=== PATIENT | female | born 1995 | race Caucasian/White ===

== ENCOUNTER 2021-12-28 09:19 | Outpatient (CLI) | payer MEDICAID, SELFPAY ==
[2021-12-28 16:00] LABS: Free T4 Free Thyroxine* 1.12 ng/dL (0.70-1.85)
== END 2021-12-28 09:20 | disposition home or self-care (01) ==
PROVIDERS: PCP Physician Assistant Medical; Visit Provider Physician Assistant Medical
DX: E03.9 Hypothyroidism, unspecified (principal)
CPT/HCPCS: 84439; 84443

== ENCOUNTER 2022-03-23 13:47 | Outpatient (CLI) | payer MEDICAID, SELFPAY ==
--- NOTE | 2022-03-23 14:00 | CRLHL7_ITS ---
For Patients: As a result of the Cures Act, medical imaging exams and procedure reports are released immediately into your electronic medical record. You may view this report before your referring provider. If you have questions, please contact your health care provider. Indication: Sinusitis Technique: Performed without IV contrast Comparison: None available Findings: Frontal sinuses: Mucosal thickening within both frontal sinuses inferiorly. Ethmoid sinuses: Moderate opacification of both ethmoid sinuses. Maxillary sinuses: Near complete opacification of the right maxillary sinus with obstruction of the sinus drainage pathway. Moderate mucosal thickening left maxillary sinus with preservation of the maxillary sinus drainage pathway. Sphenoid sinuses: Moderate opacification of the right sphenoid sinus and mild opacification of the left sphenoid sinus. Partial obstruction of the sphenoethmoidal recesses bilaterally. Nasal Cavity: Slight leftward curvature of the nasal septum. No polyps. Mild nasal turbinate mucosal hypertrophy bilaterally. No TMJ abnormalities identified. The visualized portions of the orbits, intracranial contents and upper soft tissue neck are grossly negative. Impression: 1. Bilateral sinus disease particularly involving the right maxillary and right sphenoid sinuses. 2. Partial obstruction of the sinus drainage pathways bilaterally along with complete obstruction of the right maxillary sinus drainage pathway. Please note that all CT scans at this facility use dose modulation, iterative reconstruction, and/or weight-based dosing when appropriate to reduce radiation dose to as low as reasonably achievable. Dictated by Trung Bonner MD @ 03/23/2022 2:39:44 PM (Electronically Signed)
== END 2022-03-23 13:48 | disposition home or self-care (01) ==
LOC: CT 13:49
PROVIDERS: PCP Physician Assistant Medical; Visit Provider Otolaryngology
DX: J32.9 Chronic sinusitis, unspecified (principal); J32.0 Chronic maxillary sinusitis
CPT/HCPCS: 70486

== ENCOUNTER 2022-05-13 10:08 | Outpatient (CLI) | payer MEDICAID, SELFPAY ==
[2022-05-13 20:08] LABS: Free T4 Free Thyroxine* 1.27 ng/dL (0.70-1.85)
== END 2022-05-13 10:09 | disposition home or self-care (01) ==
PROVIDERS: PCP Physician Assistant Medical; Visit Provider Physician Assistant Medical
DX: E03.9 Hypothyroidism, unspecified (principal)
CPT/HCPCS: 84439; 84443

== ENCOUNTER 2022-07-29 13:33 | Outpatient (CLI) | payer MEDICAID, SELFPAY | END 2022-07-29 13:34 | disposition home or self-care (01) | LOC: FRMREF 13:34 | PROVIDERS: PCP Physician Assistant Medical; Visit Provider Physician Assistant Medical | DX: E03.9 Hypothyroidism, unspecified (principal) | CPT/HCPCS: 84439; 84443 ==

== ENCOUNTER 2022-12-02 13:17 | Outpatient (CLI) | payer MEDICAID, SELFPAY | END 2022-12-02 13:18 | disposition home or self-care (01) | LOC: NFLDREF 12-03 10:51 | PROVIDERS: PCP Physician Assistant Medical; Referring Provider Physician Assistant Medical; Visit Provider Physician Assistant Medical | DX: E03.9 Hypothyroidism, unspecified (principal) | CPT/HCPCS: 84439; 84443 ==

== ENCOUNTER 2023-05-27 22:07 | Outpatient (CLI) | payer MEDICAID, SELFPAY | END 2023-05-27 22:08 | disposition home or self-care (01) | LOC: AMB 05-30 09:05 | PROVIDERS: PCP Physician Assistant Medical; Visit Provider Internal Medicine | DX: R55 Syncope and collapse (principal) | CPT/HCPCS: A0998 ==

== ENCOUNTER 2023-05-28 14:08 | Outpatient (CLI) | payer MEDICAID, SELFPAY | END 2023-05-28 14:09 | disposition home or self-care (01) | LOC: NFLDUCREF 14:10 | PROVIDERS: PCP Physician Assistant Medical; Visit Provider Nurse Practitioner Family | DX: E03.9 Hypothyroidism, unspecified (principal) | CPT/HCPCS: 84439; 84443 ==

== ENCOUNTER 2024-07-24 13:40 | Outpatient (CLI) | payer MEDICAID, SELFPAY ==
--- NOTE | 2024-07-24 13:45 | CRLHL7_ITS ---
For Patients: As a result of the Cures Act, medical imaging exams and procedure reports are released immediately into your electronic medical record. You may view this report before your referring provider. If you have questions, please contact your health care provider. LMP: 05/17/2024. SARABJIT by LMP: 02/21/25. GA: 9w, 5d. INDICATION: Dating and viability. CRL: 3.2 cm, 10w 1d. SARABJIT 02/18/2025. FHR: 178 bpm. GESTATIONAL SAC: 4.5 cm, appears within normal limits. YOLK SAC: 4.7 mm, appears within normal limits. RIGHT OVARY: 5.2 x 2.5 x 2.4, CL. LEFT OVARY: 3.7 x 2.1 x 2.1. IMPRESSION: Sonographic gestational age 10 weeks 1 day and sonographic due date 02/18/2025. Trung Bonner M.D. Diagnostic Radiologist [email or web address] DONN/debo / bM/Dictated by: Trung Bonner MD @ 07/24/2024 2:37:00 PM (Electronically Signed)
== END 2024-07-24 13:41 | disposition home or self-care (01) ==
LOC: US 13:40
PROVIDERS: PCP Physician Assistant Medical; Visit Provider Advanced Practice Midwife
DX: Z34.91 Encounter for supervision of normal pregnancy, unspecified, first trimester (principal); Z3A.10 10 weeks gestation of pregnancy
CPT/HCPCS: 76817; 83021; 86703; 86706; 86803; 86850; 86900; 86901; 87086; 87340; 87491; 87591; 87624; 88142

== ENCOUNTER 2024-07-24 15:11 | Outpatient (CLI) | payer MEDICAID, SELFPAY ==
[2024-07-24 20:27] LABS: Chlamydia DNA Amplified* NOT DETECTED (No Detected); GC DNA Amplified* NOT DETECTED (No Detected)
[2024-07-27 02:53] LABS: HPV Source Cervical; HPV, High Risk by TMA Not Detected
== END 2024-07-24 15:12 | disposition home or self-care (01) ==
PROVIDERS: PCP Physician Assistant Medical; Visit Provider Advanced Practice Midwife
DX: Z34.91 Encounter for supervision of normal pregnancy, unspecified, first trimester (principal); Z12.4 Encounter for screening for malignant neoplasm of cervix; Z3A.09 9 weeks gestation of pregnancy
CPT/HCPCS: 83020; 83021; 84439; 84443; 85660; 86376; 86592; 86703; 86704; 86706; 86762; 86787; 86803; 86850; 86900; 86901; 87086; 87340; 87491; 87591; 87624; 87625; 88141; 88142

== ENCOUNTER 2024-08-30 13:57 | Outpatient (CLI) | payer MEDICAID, SELFPAY | END 2024-08-30 13:58 | disposition home or self-care (01) | LOC: NPINS 14:00 | PROVIDERS: PCP Physician Assistant Medical; Visit Provider Internal Medicine Endocrinology, Diabetes & Metabolism | DX: E06.3 Autoimmune thyroiditis (principal) | CPT/HCPCS: 84443 ==

== ENCOUNTER 2024-09-19 14:22 | Outpatient (CLI) | payer MEDICAID, SELFPAY | END 2024-09-19 14:23 | disposition home or self-care (01) | LOC: FRMREF 14:22 | PROVIDERS: PCP Physician Assistant Medical; Visit Provider Advanced Practice Midwife | DX: E03.9 Hypothyroidism, unspecified (principal) | CPT/HCPCS: 84443 ==

== ENCOUNTER 2024-10-12 12:09 | Outpatient (CLI) | payer MEDICAID, SELFPAY ==
--- NOTE | 2024-10-12 12:15 | CRLHL7_ITS ---
For Patients: As a result of the Century Cures Act, medical imaging exams and procedure reports are released immediately into your electronic medical record. You may view this report before your referring provider. If you have questions, please contact your health care provider. OBSTETRICAL ULTRASOUND ??? ANATOMY SURVEY INDICATION: anatomy survey. LMP: 05/17/2024 SARABJIT by LMP: 02/21/2025 GESTATIONAL AGE: 21 weeks 1 day TECHNIQUE: Real-time fitzgerald-scale imaging of the fetus was performed transabdominal. FINDINGS: position: Multiple positions Cervix: Visualized Technique: Transabdominal Length of closed cervix: 4.7 cm Placenta position: Anterior Technique: Transabdominal Placenta tip to internal os: 7.0 cm Umbilical cord: 3-vessel cord Placental insertion: Eccentric Amniotic fluid: 5.5 cm SDP (greater than/equal to 2 to less than 8 cm) ANATOMY SURVEY: Observed Structures Cerebellum: 2.3 cm, 22 weeks 4 days Cisterna magna: 7.0 mm Nuchal fold: 4.4 mm Lateral ventricle: 7.1 mm CSP: Yes Midline falx: Yes Choroid plexus: Yes Spine: Yes Stomach: Yes Abdominal cord insert: Yes Urinary bladder: Yes Kidneys: Yes Diaphragm: Yes Nose/lips: Yes Orbital view: Yes Profile: Yes Upper extremities: Yes Lower extremities: Yes Hands: Yes Feet: Yes 4-chamber heart: Yes LVOT: Yes RVOT: Yes 3VV: Yes 3VTV: Yes BIOMETRY BPD: 5.4 cm, 22 weeks 3 days, 91.8% HC: 20.3 cm, 22 weeks 3 days, 89.1% AC: 17.8 cm, 22 weeks 5 days, 86.7% FL: 3.6 cm, 21 weeks 3 days, 52.9% heart rate: 142 bpm age by this ultrasound: 22 weeks 2 days SARABJIT by this ultrasound: 02/13/2025 Estimated weight: 482.49 grams (1 pound 1 ounce) Percentile by SARABJIT: 92.0% IMPRESSION: 1) Sonographic gestational age 22 weeks days, and sonographic due date is 02/13/2025. Sonographic age is eight days ahead of clinical dates. 2) Estimated weight is at the 92nd percentile. Abdominal circumference 87th percentile. 3) The renal pelvis measures 3.2 mm on the right and 1.6 mm on the left. This is considered normal. The remainder of the anatomic survey is unremarkable. TRUNG LEE M.D. Diagnostic Radiologist [email or web address] DW/Dictated by: Trung Lee MD @ 10/13/2024 5:31:00 PM (Electronically Signed)
== END 2024-10-12 12:10 | disposition home or self-care (01) ==
PROVIDERS: PCP Physician Assistant Medical; Visit Provider Advanced Practice Midwife
DX: Z34.92 Encounter for supervision of normal pregnancy, unspecified, second trimester (principal); O36.63X0 Maternal care for excessive fetal growth, third trimester, not applicable or unspecified; Z3A.21 21 weeks gestation of pregnancy
CPT/HCPCS: 76805; 84439; 84443

== ENCOUNTER 2024-11-28 14:23 | Outpatient (CLI) | payer MEDICAID, SELFPAY | END 2024-11-28 14:24 | disposition home or self-care (01) | LOC: FRMREF 14:24 | PROVIDERS: PCP Physician Assistant Medical; Visit Provider Advanced Practice Midwife | DX: Z36.89 Encounter for other specified antenatal screening (principal); O99.282 Endocrine, nutritional and metabolic diseases complicating pregnancy, second trimester; E03.9 Hypothyroidism, unspecified; Z3A.27 27 weeks gestation of pregnancy | CPT/HCPCS: 84443; 86592 ==

== ENCOUNTER 2025-01-09 11:55 | Outpatient (CLI) | payer MEDICAID, SELFPAY | END 2025-01-09 11:56 | disposition home or self-care (01) | LOC: NFLDREF 01-10 17:46 | PROVIDERS: PCP Physician Assistant Medical; Referring Provider Physician Assistant Medical; Visit Provider Advanced Practice Midwife | DX: Z34.83 Encounter for supervision of other normal pregnancy, third trimester (principal); E03.9 Hypothyroidism, unspecified | CPT/HCPCS: 82728; 84443 ==

== ENCOUNTER 2025-01-23 14:24 | Outpatient (CLI) | payer MEDICAID, SELFPAY ==
[2025-01-24 15:48] LABS: Strep B DNA Probe Negative (Negative)
[2025-01-24 18:21] LABS: Strep B Susceptibility Needed? No
== END 2025-01-23 14:25 | disposition home or self-care (01) ==
LOC: FRMREF 14:24
PROVIDERS: PCP Physician Assistant Medical; Visit Provider Midwife
DX: Z34.93 Encounter for supervision of normal pregnancy, unspecified, third trimester (principal); Z3A.35 35 weeks gestation of pregnancy
CPT/HCPCS: 87081; 87653

== ENCOUNTER 2025-02-18 09:22 | Inpatient (IN) | payer MEDICAID, SELFPAY ==
[2025-02-18] VITALS (12 sets, daily range): BP systolic 114–140; BP diastolic 68–88; PULSE 62–75; RESP 16–20; TEMP 36.7–36.8; O2SAT 97; BMI 31.1
--- NOTE | 2025-02-18 10:56 | W.PM.OBVAGDE ---
OB Procedure Vag Delivery Mother Details Mother Details: The patient is a 29 year-old, 6, Para 4, admitted on 02/18/25 at 39 4/7 weeks gestation. Admission Date: 02/18/25 Additional Details Amniotic Membrane Status: SROM Amniotic Membrane Rupture Date: 02/18/25 Amniotic Membrane Rupture Time: 09:37 Amniotic Membrane Fluid Description: Clear Analgesia/Anesthesia Type: None Waterbirth: Yes (Stood for delivery of the body due to shoulder dystocia) Pitcoin: No Intrapartal Events: None Labor Onset: 06:00 Complete: 09:40 (assumed with spontaneous pushing) Pushin:40 Heart: heart tones during second stage were category I with no audible decelerations, normal baseline. Pt did not allow us to check for them as often as we desired due to intensity of her labor, but when she did, all was normal. Rapid descent Delivery Details Delivery Date: 02/18/25 Delivery Time: 10:08 Route of delivery: Infant Gender: Male Viability: Alive; Heart Rate Present Position at Delivery: OA Delivery Details: Patient was admitted for active labor and progressed normally. SROM noted at 0937 with clear fluid. Patient was assumed complete at 0940 with spontaneous pushing at 0940. head born LISA under water with mom on one knee and one foot. Tight nuchal cord palpated. With next contraction, anterior shoulder did not come under the pubic bone. Destiny was asked to stand but needed coaxing to do so. Left leg lifted to side of tub and anterior shoulder slowly came under pubic bone. Baby somersaulted out into his fathers hands. Nuchal cord unwound and baby handed to his mother and placed skin to skin. of a viable male at 1008 with mother standing in the tub. Vertex delivered OA. Cord was clamped and cut at > 5 minutes. APGARS were 7 at one minute and 9 at five minutes respectively. Mouth was bulb suctioned. Intact placenta with a 3 vessel cord delivered spontaneously at 1022, but lots of trailing membranes slowly teased out with maternal pushing effort and fundal pressure over the next 10 minutes. QBL 100 in tub and 285 on pad. Fundus firm. 1st identified at midline introitus, hemostatic and not repaired.. QBL 385 cc. Mother and baby stable; mother plans to breastfeed. weight pending.? 1 Minute Interval Total Score: 7 5 Minute Interval Total Score: 9 Additional Details Shoulder Dystocia: Yes (resolved with position change) Placenta Delivery Time: 10:22 Placental Delivery Description: Spontaneous Procedure Done: Global Blood Loss: 385 Laceration: Perineal - 1st Degree (hemostatic, not repaired) Episiotomy Description: None Blood Loss Measurement Type: QBL Bakri Used: No Sponge/Need Count Correct: Yes Cord Vessel Description: 3 Vessels, Nuchal Cord, Tight and Delivered through Event Summary Status: Mother and were stable after delivery. Disposition: floor
--- NOTE | 2025-02-18 11:48 | W.PM.LDBA ---
Subjective History of Present Illness Time Seen by Provider: 08:45 Date Seen: 02/18/25 Narrative: Patient is being admitted to Labor and Delivery for spontaneous labor at term. She is a 29 year old at 39 4/7 weeks gestation. Her full history and physical was dictated by Han on 01/30/2025. Please see this for details. Specific Issues/Plans Partner: Bolivar Renteria H&P 01/30/25 by Carissa Joseph CNM # Hypothyroid-on 137mcg levothyroxine but takes irregularly. Educated on the importance of taking medication regularly. TSH at NOB: 81.5. Educated on importance of taking medication regularly. Will not change dose at this time due to irregular dosing. TPO 3438.0 and Free T4 0.51. Endocrinology referral placed. Aniya Jennings 08/30/24: 4.180. Increased to 150mcg on 09/05. TSH ---Endo is following and monitoring this for her. They have already arranged a lower dose of levo also. 137mcg daily. -09/19/24-TSH 3.7 10/12/2024-TSH increased to 175mcg 11/28/24: 3.050 01/09/25- 2.35 # Left thyroid nodule. Reassess with US PP per endocrine recommendations. #Hx PP depression and in high school. # Hx polyhydramnios and vacuum assisted delivery # Possibly 1/2 sibling with downs ( was terminated. Uncertain if true and unable to verify as her mother is ) # Anemia. Hgb 10.6, ferritin 5.6 at 34wks. Taking liquid iron. Declines IV iron. COVID: declined Flu: declined TDAP: Declines 12/19/24 32wk Mental Health: 34wk Hgb: OB - Problem Based A/P Additional Plan (1) Supervision of other normal : Status: Acute Plan ASSESSMENT:?? 29 at 39 4/7 weeks gestation?? complicated by:??Hypothyroid, anemia Labor type: [Induced/Spontaneous], [Early/Active] labor?? Category 1 FHR pattern.??? Labor complicated by: none?? GBS negative ?? PLAN:?? 1. Routine intrapartum cares as ordered. Continue with expectant management?? 2. Monitoring per policy, intermittent?? 3. Planning unmedicated . Desires water . Consent signed. Hep C negative. Candidate for analgesia of choice.??? 4. Patient encouraged to reposition and ambulate to promote physiologic labor and .?? 5. Anticipate ? OB Exam Physical Exam Vital signs: Pulse BP Pulse Ox 65 138/68 97 02/18/25 11:46 02/18/25 11:46 02/18/25 08:44 Narrative: Vitals Reviewed Constitutional:? Alert and oriented x3 HEENT:? Normocephalic, atraumatic Neck:? Supple Lungs:? Clear to auscultation bilaterally Heart:? Regular rate and rhythm, no murmur, rub or gallop Abdomen:? Soft, nontender, and gravid. Vertex by Babar's, confirmed with cervical exam. Extremities:? No edema or erythema Cervix: 6 cm/90%/0 station/vertex with palpable sutures NST: 135 bpm/moderate variability/accelerations present/decelerations absent/contractions q 3 min palpating moderate
--- NOTE | 2025-02-18 16:03 | P.DS_ITS ---
DS: Providers Provider Date Seen: 02/18/25 Date of admission: 02/18/25 09:22 Primary care physician: Elias Gonzalez PA-C Admitting Clinician: Vianey Andino CNM Attending Physician on discharge: Vianey Andino CNM Date of Discharge: 02/18/25 DS: Diagnosis Discharge Diagnosis (1) care and examination of lactating mother: Status: Acute (2) Hypothyroidism: Status: Acute Problem details: poor medication adherence. Exam Narrative: Exam Narrative: GENERAL APPEARANCE:? normal affect, alert, no distress MOOD:? appropriate ABDOMEN:? soft, non-tender the uterine fundus is At Umbilicus, Midline and is appropriate for the stage of recovery. PERINEUM:? deferred EXTREMITIES:? normal and minimal edema Const: Vital Signs, click to edit/add: Vital Signs - 24 hr 02/18/25 08:44 02/18/25 08:45 02/18/25 10:31 Temperature Pulse Rate 71 64 Respiratory Rate Blood Pressure 127/84 140/88 H Pulse Oximetry 97 02/18/25 10:31 02/18/25 10:46 02/18/25 10:46 Temperature 98.1 F Pulse Rate 74 Respiratory Rate 20 20 Blood Pressure 126/72 Pulse Oximetry 02/18/25 11:01 02/18/25 11:01 02/18/25 11:16 Temperature Pulse Rate 67 69 Respiratory Rate 18 Blood Pressure 127/75 125/81 Pulse Oximetry 02/18/25 11:16 02/18/25 11:31 02/18/25 11:31 Temperature Pulse Rate 74 Respiratory Rate 18 18 Blood Pressure 126/80 Pulse Oximetry 02/18/25 11:46 02/18/25 11:46 02/18/25 12:01 Temperature Pulse Rate 65 62 Respiratory Rate 16 Blood Pressure 138/68 122/68 Pulse Oximetry 02/18/25 12:01 02/18/25 12:16 02/18/25 12:16 Temperature 98.2 F Pulse Rate 65 Respiratory Rate 16 16 Blood Pressure 123/77 Pulse Oximetry 02/18/25 12:49 02/18/25 12:49 Temperature Pulse Rate 75 Respiratory Rate 16 Blood Pressure 114/74 Pulse Oximetry OB - DS: Summary Hospital Course Hospital Course: Corrina is a 29 y.o. G 6 P 5015 who was admitted to L & D for active labor.? She had a NVD that was complicated by shoulder dystocia The patient feels well.? The pain is well controlled with current medications.? She has no new complaints.? She is breast feeding and reports things are going well. the patient has done well.? Vitals have been stable.? She has remained afebrile.? Has a good appetite, is tolerating a general diet.? She is voiding without difficulty.? She is not passing gas and has not had a bowel movement.? She is ambulating and denies any dizziness.? Has small amount of rubra lochia. She is planning NFP/condoms for prevention.? ?? Problems: none ?? plan:? Discharge home with baby prior to 24 hours.? Follow up in 2 weeks and 6 weeks.? Decrease levhtyroxine to 137mcg daily . , may see if needed? Call for signs/symptoms of preeclampsia? Peripartum Data delivery method: Vaginal Laceration description: Perineal - 1st Degree (not repaired) Episiotomy description: None complications: none Gender: Male Infant Discharge Plan: Home Status at Discharge Functional status at discharge: independent ambulation Overall status at discharge: patient is progressing back to baseline Time Spent with Patient Time attestation: Total time spent providing and/or coordinating discharge services: Time spent: Less than 30 minutes Discharge Plan Discharge Disposition: Home, Self-Care Date of Admission: 02/18/25 09:22 Attending Provider on Discharge: Vianey Andino Primary Care Provider: Elias Gonzalez Condition: Stable Anticipated Discharge Date/Time: 02/18/25 16:10 Discharge Medications: Continued zinc citrate 11 mg tablet,chewable PO vitamin B complex Capsule 1 cap PO QDAY oxp-cbqt-dplwa acid 40-1 mg/15 mL liquid PO DAILY magnesium 250 mg tablet 250 mg PO QDAY ferrous sulfate [Owen-In-Izzy] 15 mg iron (75 mg)/mL drops 0.83 ml PO QDAY Changed levothyroxine 137 mcg tablet 137 mcg PO QDAY Qty: 60 0RF Discharge Orders: Discharge Order (Routine); Ordered 02/18/25 Ordered By: Vianey Andino Patient Education: OB Over the Counter Medication Information, OB Vaginal/Breast Feeding Additional Instructions: Discharge instructions were reviewed with the patient including signs and symptoms of infection and home going medications Nothing vaginally for 6 weeks: no tampons or intercourse Do not drive while taking narcotic pain medication(s) Off Work or School for 6 weeks Symptoms to report to doctor: * Bleeding that saturates more than one pad per hour * Passing clots larger than the size of a golf ball * Pain not relieved by prescribed medication * Fever above 100.4 degrees Fahrenheit * A foul vaginal odor * Difficulty in emotions, mood, and functions * Thoughts of hurting yourself and/or * Painful, reddened area in your breast * Any drainage, redness, or tenderness in your IV/epidural site * Severe headache that doesn't improve after taking medications * Changes in vision, including temporary loss of vision, blurred vision, and/or light sensitivity * Upper abdominal pain (usually under ribs on the right side) * Decrease in urination or painful, frequent urinating * Chest pain * Shortness of breath * Tenderness or pain with redness and/swelling in the calf(s) of your leg 2-week visit: discuss feeding concerns, review control options and screen for anxiety/depression. 6-week visit for an annual exam. consultation services are available to all mothers and babies for the first year after delivery.? To make an appointment, please call [phone]. Follow Up Appointments: [facility] [Provider Group] Forms: Patient Belongings, MyHealth Info Instructions
== END 2025-02-18 18:51 | disposition home or self-care (01) | DRG 807 ==
LOC: OB OUT 09:22 → OB 09:22
PROVIDERS: Admitting Provider Midwife; PCP Physician Assistant Medical; Visit Provider Midwife
DX: O99.284 Endocrine, nutritional and metabolic diseases complicating childbirth (principal); Z37.0 Single live birth; O66.0 Obstructed labor due to shoulder dystocia; O70.0 First degree perineal laceration during delivery; E03.9 Hypothyroidism, unspecified; O99.02 Anemia complicating childbirth; D64.9 Anemia, unspecified; Z3A.39 39 weeks gestation of pregnancy
CPT/HCPCS: 86592

== ENCOUNTER 2025-03-01 09:32 | Outpatient (CLI) | payer MEDICAID, SELFPAY ==
--- NOTE | 2025-03-01 13:07 | W.PM.LAC.MC ---
Consult Note - Mom Date of Visit Date of visit: 03/01/25 Reason for consultation: Assistance Needed, Breast/Nipple Issue (painful nipples) and Other (baby not latch well ) Visit Code: Visit Patient's Information Phone number: [phone] Para: 5 Allergies seasonal pollen Allergy (Mild, Uncoded 02/13/25 13:48) congestion Mother's Medical History: Medical History (Updated 02/21/25 @ 00:01 by Background Joanna) Depression ?F32.A - Depression, unspecified (ICD-10) Polyhydramnios ?O40.9XX0 - Polyhydramnios, unspecified trimester, not applicable or unspecified (ICD-10) Delivery Information Delivery type: Vaginal Gestational Age: 37+4 Gestational Weight For Age: AGA Weight: 4.11 kg Discharge Weight: 3.964 kg Percentage weight loss: 3.9 Baby's Information Baby's Age at Visit: 11 days Baby's Provider or Clinic: [facility] Jaundice: Yes Past Experience Past Experience: Yes (BF 4 other children successfully, most 1 yr or longer) Current Frequency of Day Feedings: every 2-2.5 hrs Frequency of Night Feedings: about 3 hr stretches Both Breasts: No Suck: strong Latch: painful, shallo Length of Time: not nursing due to pain Goals: at least 1 year Pumping Pumping: Yes Quantity Pumped: every 2-2.5 hours, getting 2.5-3 oz/pump Supplementing EBM Supplement: Yes (babe taking 2.5-3 oz/feeding) Formula Supplement: No Baby Elimination Number of Wet Diapers a Day: ea feeding Number of BM a Day: 6 or more/day; yellow, seedy in color/texture Breast/Nipple Condition Breast Information: Breasts are symmetrical with rounded lower quadrants, intramammary distance is less than 1.5 inches. No erythema. Nipples are supple, everted prior to feeding. Nipples are erythematous; LEFT nipple with horizontal crack on top of nipple RIGHT nipple with thin layer of biofilm present; also with horizontal crack on top of nipple Breast Shape: Round and Firm Engorgement: No Maternal Nipple Condition - Left: Common Nipple and Cracking/ Fissures Maternal Nipple Condition - Right: Common Nipple and Cracking/ Fissures Sore Nipples: Yes Interventions for Sore Nipples: Other (silverettes) Baby Assessment Skin: Normal and Yellow (eyes slight icteric) Tongue/frenulum: Restricted mid-range Palate: Average Lips: Relaxed and Symmetrical Jaw Alignment: Symmetrical Mucosa: Lowrey, moist Onsite Observation Pre-Feed weight: 4.164 kg (average 37gm/day gain in last 7 days) Post-Feed weight: 4.172 kg Milk Transferred (mL): 8 Position: Cross cradle and Football Attachment/latch-on achieved: Easily Suck pattern: Latched, but no sucking, audible swallows (babdemetra can get a deep latch, easily slides to nipple despite gentle pressure used to hold baby close to breast) Swallow: Occasionally Behavior following feed: Alert, fussy Pre-Nursing Left Nipple: Redness Pre-Nursing Right Nipple: Redness and Crusting/Scabs Post-Nursing Left Nipple: Redness Assessments/Interventions Assessments/Interventions: Amelia latched to mom's LEFT breast, latched fairly easily using asymmetric latch technique and a quick bringing to the breast, neetae latched on and off several times requiring relatching. Initially latched in cross cradle hold; mom then switched him to football hold and this was easier for her, felt like a deeper latch and less painful. Nursed for about 8 minutes. Transferred 8 ml of milk Did not attempt latch to RIGHT side due to pain and wanting to see how he drank from a bottle Jaw motion was very chompy which mom states is how it feels; she states this is also what he does on the bottle. Baby then bottle fed 3 oz of EBM; took him 15 minutes; same chompy behavior noted on the bottle along with slurping and smacking sounds; mom states these are pretty common. Nipple care for mom: Stop silverettes for awhile Try hydrogels or nipple balm given biofilm on right nipple, gentle washing once a day to remove sticky layer followed by saline wash Low index of suspicion for infection 9either bacterial or yeast) with any change in symptoms: redness, increased pain, fever, itching, or spreading of erythema Education provided: Early feeding cues to maximize timing of latching, Asymmetric latch technique for wide/deep latch to increase milk, Transfer for baby and increase comfort for mom, Supply/demand nature of milk supply, Alternative feeding methods (SNS, cup, finger feeding, bottling) (Paced bottle feeding and milk volumes), Pumping for milk management (discussed pumping q3 hrs to give mom's nipples/breasts a bit of a break from the 2-2.5 hrs. Discussed pump settings as well) and Milk collection, storage Handouts Provided: Suck training exercises: specifically tug of war, windshield wiper, toothbrushing Guppy pose to release tension and assist with greater tongue mobility Tongue tie referral for posterior tongue tie evaluation, if parents choose that route Feeding Plan: Attempt as desired with new techniques; if painful, continue to pump and bottle for a few days while working through exercises then try again Follow-Up Suggested follow up: Appointment as needed Time Spent Time spent with patient (min): 60 Meds Home Medications and Allergies Home Medications ?Medication ?Instructions ?Recorded ?Confirmed ?Type sgq-[id number]-[id number] acid 40 ml PO DAILY 07/24/24 02/13/25 History mg-1 mg/15 mL oral liquid vitamin B complex 1 cap PO QDAY 07/24/24 02/13/25 History zinc citrate 11 mg chewable tablet mg PO 07/24/24 02/13/25 History magnesium 250 mg tablet 250 mg PO QDAY 01/09/25 02/13/25 History ferrous sulfate 15 mg iron (75 0.83 ml PO QDAY 01/23/25 02/13/25 History mg)/mL oral drops (Owen-In-Izzy) levothyroxine 137 mcg tablet 137 mcg PO QDAY #60 tabs 02/18/25 02/13/25 Rx Allergies Allergy/AdvReac Type Severity Reaction Status Date / Time seasonal pollen Allergy Mild congestion Uncoded 02/13/25 13:48
== END 2025-03-01 09:33 | disposition home or self-care (01) ==
LOC: OB LAC 09:32
PROVIDERS: PCP Physician Assistant Medical; Visit Provider Obstetrics & Gynecology
DX: Z39.1 Encounter for care and examination of lactating mother (principal)
CPT/HCPCS: G0463